=== PATIENT | female | born 1980 | race African-American/Black ===

== ENCOUNTER 2016-08-20 19:02 | Emergency (ER) | payer MEDICARE ==
[~2016-08-20] VITALS: Ht 165.1 cm; Wt 96.6 kg
[2016-08-20 19:19] VITALS: BP 151/99
[2016-08-20] MEDS ORDERED: ONDANSETRON ODT 4 MG PO ONE (19:30)
[2016-08-20 19:53] LABS: ASPARTATE AMINO TRANSFERASE 14 U/L (15-37); BLOOD UREA NITROGEN 16 mg/dL (7-18)
[2016-08-20] MEDS ORDERED: ONDANSETRON ODT 4 MG ONE (22:45)
== END 2016-08-20 23:56 | disposition home or self-care (01) ==
LOC: ED 23:14
DX: K25.3 Acute gastric ulcer without hemorrhage or perforation (principal); J45.909 Unspecified asthma, uncomplicated
CPT/HCPCS: 36415; 76700; 80053; 81003; 83690; 84703; 85025; 99285; Q0162